=== PATIENT | female | born 1990 | race American Indian/Alaskan Native ===

== ENCOUNTER 2018-12-09 13:23 | Emergency (ER) | payer SELFPAY ==
[2018-12-09 13:41] VITALS: BP 145/93
[2018-12-09] MEDS ORDERED: FLEXERIL PO ONE (14:25)
[2018-12-09] MEDS ORDERED: IBUPROFEN PO ONE (14:25)
--- NOTE | 2018-12-09 14:25 | Emergency Department Report ---
ED Back Pain/Injury HPI - General Chief Complaint: Back Pain/Injury Stated Complaint: LOWER BACK PAIN Time Seen by Provider: 12/09/18 14:08 Source: patient Limitations: No Limitations - History of Present Illness Initial Comments: Ms. Hernández is a 28 yo female with hx of HTN who presents mild lower central back pain for the last several days. Mild in severity. 4 out of 10 in severity. 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 She was afraid to take any medication at home. She does not want any interaction with her home medication hydrochlorothiazide. MD Complaint: back pain -: Gradual Similar Symptoms Previously: No Place: home, work Radiation: none Severity: mild Severity scale (0 -10): 4 Quality: aching Consistency: constant Improves With: none Worsens With: movement Context: while lifting, turning/twisting, bending - Related Data Previous Rx's Medication Instructions Recorded Last Taken Type Metoclopramide [Reglan] 10 mg PO ACHS #28 tablet 06/26/18 Unknown Rx Prednisone [predniSONE 10 mg 10 mg PO .TAPER #1 tab.ds.pk 06/26/18 Unknown Rx (6-Day Pack, 21 Tabs)] Triamcinolone Aceton 0.1% (Nf) 1 applic TP BID #21 tube 06/26/18 Unknown Rx [Kenalog (NF)] diphenhydrAMINE [Benadryl CAP] 25 mg PO Q6HR PRN #30 capsule 06/26/18 Unknown Rx Cyclobenzaprine [Flexeril] 10 mg PO TID PRN #20 tablet 12/09/18 Unknown Rx Ibuprofen [Motrin 800 MG tab] 800 mg PO TID 5 Days #15 tablet 12/09/18 Unknown Rx Allergies Allergy/AdvReac Type Severity Reaction Status Date / Time minocycline Allergy Swelling Verified 12/09/18 13:37 ED Review of Systems ROS: Stated complaint: LOWER BACK PAIN Other details as noted in HPI Constitutional: denies: fever, malaise Musculoskeletal: back pain Skin: denies: rash, lesions Neurological: denies: numbness, paresthesias ED Past Medical Hx - Past Medical History Previous Medical History?: Yes Hx Hypertension: Yes Hx Asthma: Yes - Surgical History Past Surgical History?: No Additional Surgical History: wisdom - Social History Smoking Status: Never Smoker Substance Use Type: None - Medications Home Medications: Home Medications Medication Instructions Recorded Confirmed Last Taken Type Metoclopramide [Reglan] 10 mg PO ACHS #28 tablet 06/26/18 Unknown Rx Prednisone [predniSONE 10 mg 10 mg PO .TAPER #1 tab.ds.pk 06/26/18 Unknown Rx (6-Day Pack, 21 Tabs)] Triamcinolone Aceton 0.1% (Nf) 1 applic TP BID #21 tube 06/26/18 Unknown Rx [Kenalog (NF)] diphenhydrAMINE [Benadryl CAP] 25 mg PO Q6HR PRN #30 capsule 06/26/18 Unknown Rx Cyclobenzaprine [Flexeril] 10 mg PO TID PRN #20 tablet 12/09/18 Unknown Rx Ibuprofen [Motrin 800 MG tab] 800 mg PO TID 5 Days #15 tablet 12/09/18 Unknown Rx ED Physical Exam - General Limitations: No Limitations General appearance: alert, in no apparent distress - Head Head exam: Present: atraumatic, normocephalic - Eye Eye exam: Present: normal appearance - ENT ENT exam: Present: mucous membranes moist - Neck Neck exam: Present: normal inspection - Respiratory Respiratory exam: Absent: respiratory distress - GI/Abdominal GI/Abdominal exam: Present: soft - Extremities Exam Extremities exam: Present: normal inspection - Back Exam Back exam: Present: normal inspection - Neurological Exam Neurological exam: Present: alert, oriented X3, normal gait - Psychiatric Psychiatric exam: Present: normal affect, normal mood - Skin Skin exam: Present: warm, dry, intact, normal color. Absent: rash ED Course Vital Signs 12/09/18 13:37 Temperature 98.3 F Pulse Rate 109 H Respiratory 16 Rate Blood Pressure 145/93 O2 Sat by Pulse 99 Oximetry ED Medical Decision Making - Medical Decision Making Mild lumbar strain: Prescribed ibuprofen and Flexeril Recommended chiropractor or massage therapy Critical care attestation.: If time is entered above; I have spent that time in minutes in the direct care of this critically ill patient, excluding procedure time. ED Disposition Clinical Impression: Lumbar strain, Acute back pain Disposition: TO HOME OR SELFCARE Is pt being admited?: No Does the pt Need Aspirin: No Condition: Stable Instructions: Low Back Strain (ED), Acute Low Back Pain (ED) Prescriptions: Cyclobenzaprine [Flexeril] 10 mg PO TID PRN #20 tablet PRN Reason: Muscle Spasm Ibuprofen [Motrin 800 MG tab] 800 mg PO TID 5 Days #15 tablet
== END 2018-12-09 14:48 | disposition home or self-care (01) ==
LOC: ED 13:23
DX: S39.012A Strain of muscle, fascia and tendon of lower back, initial encounter (principal); I10 Essential (primary) hypertension; J45.909 Unspecified asthma, uncomplicated; Z88.1 Allergy status to other antibiotic agents; X50.9XXA Other and unspecified overexertion or strenuous movements or postures, initial encounter; Y93.89 Activity, other specified; Y92.89 Other specified places as the place of occurrence of the external cause; Y99.8 Other external cause status

== ENCOUNTER 2018-12-10 16:54 | Emergency (ER) | payer SELFPAY ==
--- NOTE | 2018-12-10 17:35 | Emergency Department Report ---
Chief Complaint: Back Pain/Injury Stated Complaint: TAILBONE/LOWERBACK PAIN Time Seen by Provider: 12/10/18 17:32 - HPI History of Present Illness: This is a 28 y.o. F. that presents to the ER with tailbone pain x 4 days. Denies injury. LMP 12/01/2018 - Exam Vital Signs: Vital Signs 12/10/18 17:31 Temperature 98.1 F Pulse Rate 92 H Respiratory 16 Rate Blood Pressure 131/83 O2 Sat by Pulse 100 Oximetry MSE screening note: Focused history and physical exam performed. Due to findings the following was ordered: This initial assessment/diagnostic orders/clinical plan/treatment(s) is/are subject to change based on patient's health status, clinical progression and re- assessment by fellow clinical providers in the ED. Further treatment and workup at subsequent clinical providers discretion. Patient/guardians urged not to elope from the ED as their condition may be serious if not clinically assessed and managed. Initial orders include: L-spine x-ray ED Disposition for MSE Condition: Stable
--- NOTE | 2018-12-10 18:51 | XRay Report ---
EXAM: XR SPINE LUMBOSACRAL 2-3V HISTORY: low back pain TECHNIQUE: 2 views COMPARISON: None available. FINDINGS: No vertebral fracture, bony erosion, or sclerosis is identified. There is no gross malalignment, spon dylolisthesis, or retrolisthesis seen. The intravertebral disc spaces are preserved. No evidence for significant degenerative disease is se en. The pedicles are intact throughout. There is no paraspinal soft tissue mass seen. IMPRESSION: 1. Unremarkable lumbar spine x-ray series. This document is electronically signed by Eric Gandhi MD., December 10 2018 06:49:12 PM ET
[2018-12-10 20:38] VITALS: BP 130/86
[2018-12-10] MEDS ORDERED: TORADOL IM ONE (20:55)
--- NOTE | 2018-12-10 20:55 | Emergency Department Report ---
ED Back Pain/Injury HPI - General Chief Complaint: Back Pain/Injury Stated Complaint: TAILBONE/LOWERBACK PAIN Time Seen by Provider: 12/10/18 17:32 Source: patient Limitations: No Limitations - History of Present Illness Initial Comments: CC: "I need a few days off work." HPI: Ms. Hernández is a 28 yo female who has lower lumbar back pain for the past several days. I evaluated her on yesterday. She had not attempted in pain medications. She desires time off work to recover. Mild back pain. No numbness. No fall. No fever. MD Complaint: back pain -: Gradual, days(s) (4) Similar Symptoms Previously: Yes Place: work Radiation: none Severity: mild Severity scale (0 -10): 4 Quality: dull Consistency: constant Worsens With: movement Context: while lifting - Related Data Previous Rx's Medication Instructions Recorded Last Taken Type Metoclopramide [Reglan] 10 mg PO ACHS #28 tablet 06/26/18 Unknown Rx Prednisone [predniSONE 10 mg 10 mg PO .TAPER #1 tab.ds.pk 06/26/18 Unknown Rx (6-Day Pack, 21 Tabs)] Triamcinolone Aceton 0.1% (Nf) 1 applic TP BID #21 tube 06/26/18 Unknown Rx [Kenalog (NF)] diphenhydrAMINE [Benadryl CAP] 25 mg PO Q6HR PRN #30 capsule 06/26/18 Unknown Rx Cyclobenzaprine [Flexeril] 10 mg PO TID PRN #20 tablet 12/09/18 Unknown Rx Ibuprofen [Motrin 800 MG tab] 800 mg PO TID 5 Days #15 tablet 12/09/18 Unknown Rx Allergies Allergy/AdvReac Type Severity Reaction Status Date / Time minocycline Allergy Swelling Verified 12/09/18 13:37 ED Review of Systems ROS: Stated complaint: TAILBONE/LOWERBACK PAIN Other details as noted in HPI Comment: All other systems reviewed and negative Constitutional: denies: fever, malaise Respiratory: denies: cough Cardiovascular: denies: chest pain ED Past Medical Hx - Past Medical History Previous Medical History?: Yes Hx Hypertension: Yes Hx Asthma: Yes - Surgical History Additional Surgical History: wisdom - Social History Smoking Status: Never Smoker Substance Use Type: None - Medications Home Medications: Home Medications Medication Instructions Recorded Confirmed Last Taken Type Metoclopramide [Reglan] 10 mg PO ACHS #28 tablet 06/26/18 Unknown Rx Prednisone [predniSONE 10 mg 10 mg PO .TAPER #1 tab.ds.pk 06/26/18 Unknown Rx (6-Day Pack, 21 Tabs)] Triamcinolone Aceton 0.1% (Nf) 1 applic TP BID #21 tube 06/26/18 Unknown Rx [Kenalog (NF)] diphenhydrAMINE [Benadryl CAP] 25 mg PO Q6HR PRN #30 capsule 06/26/18 Unknown Rx Cyclobenzaprine [Flexeril] 10 mg PO TID PRN #20 tablet 12/09/18 Unknown Rx Ibuprofen [Motrin 800 MG tab] 800 mg PO TID 5 Days #15 tablet 12/09/18 Unknown Rx ED Physical Exam - General Limitations: No Limitations General appearance: alert, in no apparent distress - Head Head exam: Present: atraumatic, normocephalic - Eye Eye exam: Present: normal appearance - ENT ENT exam: Present: mucous membranes moist - Neck Neck exam: Present: normal inspection - Respiratory Respiratory exam: Present: normal lung sounds bilaterally. Absent: respiratory distress, wheezes, rales, rhonchi - Cardiovascular Cardiovascular Exam: Present: regular rate, normal rhythm, normal heart sounds. Absent: systolic murmur, diastolic murmur, rubs, gallop - GI/Abdominal GI/Abdominal exam: Present: soft, normal bowel sounds. Absent: distended, tenderness - Extremities Exam Extremities exam: Present: normal inspection - Back Exam Back exam: Present: full ROM, muscle spasm. Absent: tenderness, CVA tenderness (R), CVA tenderness (L) - Neurological Exam Neurological exam: Present: alert, oriented X3, normal gait - Psychiatric Psychiatric exam: Present: normal affect, normal mood - Skin Skin exam: Present: warm, dry, intact, normal color. Absent: rash ED Course Vital Signs 12/10/18 12/10/18 17:31 20:37 Temperature 98.1 F Pulse Rate 92 H 92 H Respiratory 16 16 Rate Blood Pressure 131/83 Blood Pressure 130/86 [Left] O2 Sat by Pulse 100 100 Oximetry ED Medical Decision Making - Medical Decision Making Ms. Hernández presents with mild lower lumbar strain. She was given work note. Strongly encouraged the use of medications provided on yesterday. Critical care attestation.: If time is entered above; I have spent that time in minutes in the direct care of this critically ill patient, excluding procedure time. ED Disposition Clinical Impression: Lumbar strain, Acute back pain Disposition: TO HOME OR SELFCARE Is pt being admited?: No Does the pt Need Aspirin: No Condition: Stable Instructions: Acute Low Back Pain (ED) Referrals: JENNIFER BISHOP MD [Primary Care Provider] - 3-5 Days Forms: Work/School Release Form(ED)
== END 2018-12-10 21:04 | disposition home or self-care (01) ==
LOC: ED 16:54
DX: S39.012A Strain of muscle, fascia and tendon of lower back, initial encounter (principal); I10 Essential (primary) hypertension; J45.909 Unspecified asthma, uncomplicated; X58.XXXA Exposure to other specified factors, initial encounter; Y93.89 Activity, other specified; Y92.89 Other specified places as the place of occurrence of the external cause; Y99.8 Other external cause status
CPT/HCPCS: 72100; 96372; 99283; J1885

== ENCOUNTER 2020-01-24 12:53 | Emergency (ER) | payer SELFPAY ==
[2020-01-24 13:34] VITALS: BP 148/86
--- NOTE | 2020-01-24 13:41 | Emergency Department Report ---
Chief Complaint: Urogenital-Female Stated Complaint: BREAST PAIN Time Seen by Provider: 01/24/20 13:30 - HPI History of Present Illness: 29 yo AA F pt with hx of HTN and Asthma presents with complaints of right breast pain x 3 weeks. She denies any skin changes, masses, hx of breast cancer, or nipple discharge. Pt states she was seen at the [place] [facility] 3 weeks ago at the start of her pain and was given a breast US. She states nothing was found on the US and she has now been scheduled for a mammogram. Pt states she is here today for worsening of her pain today MSE screening note: Focused history and physical exam performed. Due to findings the following was ordered: ED Medical Decision Making - Medical Decision Making Patient here with complaints of right breast pain for the past 3 weeks. She states she is currently being evaluated at the [facility] and is scheduled for mammogram. No abnormalities of the right breast are noted on exam. Patient's symptoms seem to be consistent with fibrocystic breasts. Recommend patient follows up with the [facility] for her mammogram as scheduled. She is well- appearing and her vitals are normal. Strict return precautions were discussed in detail with patient who verbalized understanding. ED Disposition for MSE Clinical Impression: Breast pain, right Disposition: Z-07 MED SCREENING EXAM-LEFT Is pt being admited?: No Condition: Stable Instructions: Mammogram (ED) Additional Instructions: Please try taking ibuprofen 400 mg to 800 mg three times daily as needed for pain. Lease follow-up with the [facility] as scheduled for your mammogram Forms: Work/School Release Form(ED) ED Physical Exam - General Limitations: No Limitations General appearance: alert, in no apparent distress - Head Head exam: Present: atraumatic - Eye Eye exam: Present: normal appearance. Absent: scleral icterus - Neck Neck exam: Present: normal inspection - Respiratory Respiratory exam: Present: normal lung sounds bilaterally. Absent: respiratory distress - Cardiovascular Cardiovascular Exam: Present: regular rate, normal rhythm, other (Right breast is normal in appearance. No erythema, swelling, or lesions are noted. Breast is tender to palpation, however no masses are felt. No nipple discharge is noted/expressed). Absent: systolic murmur, diastolic murmur, rubs, gallop - Extremities Exam Extremities exam: Present: normal inspection - Back Exam Back exam: Present: normal inspection - Neurological Exam Neurological exam: Present: alert, oriented X3, normal gait - Psychiatric Psychiatric exam: Present: normal affect, normal mood - Skin Skin exam: Present: warm, dry, intact, normal color. Absent: rash ED Review of Systems ROS: Stated complaint: BREAST PAIN Other details as noted in HPI Constitutional: denies: chills, fever, malaise Respiratory: denies: cough, shortness of breath Cardiovascular: denies: palpitations, edema, syncope Gastrointestinal: denies: abdominal pain, nausea, vomiting Skin: denies: rash, lesions, change in color, pruritus Neurological: denies: numbness, paresthesias Hematological/Lymphatic: denies: easy bleeding, swollen glands
== END 2020-01-24 15:23 | disposition left against medical advice (07) ==
LOC: ED 12:53
DX: N64.4 Mastodynia (principal); Z53.21 Procedure and treatment not carried out due to patient leaving prior to being seen by health care provider

== ENCOUNTER 2021-01-08 23:19 | Emergency (ER) | payer SELFPAY ==
[2021-01-08 23:36] VITALS: BP 157/98
--- NOTE | 2021-01-09 02:19 | Emergency Department Report ---
ED ENT HPI - General Chief complaint: Sore Throat Stated complaint: SORE THROAT/HEADACHE/COLD SX Time Seen by Provider: 01/09/21 01:47 Source: patient Mode of arrival: Ambulatory Limitations: No Limitations - History of Present Illness MD complaint: sore throat -: Gradual Location: throat Severity: mild, moderate Quality: aching, dull Consistency: constant Improves with: none Worsens with: swallowing Associated Symptoms: toothache, pain with swallowing, sore throat. denies: hearing loss, discharge from ear, rhinorrhea - Related Data Previous Rx's Medication Instructions Recorded Last Taken Type Metoclopramide [Reglan] 10 mg PO ACHS #28 tablet 06/26/18 Unknown Rx Prednisone [predniSONE 10 mg 10 mg PO .TAPER #1 tab.ds.pk 06/26/18 Unknown Rx (6-Day Pack, 21 Tabs)] Triamcinolone Aceton 0.1% (Nf) 1 applic TP BID #21 tube 06/26/18 Unknown Rx [Kenalog (NF)] diphenhydrAMINE [Benadryl CAP] 25 mg PO Q6HR PRN #30 capsule 06/26/18 Unknown Rx Cyclobenzaprine [Flexeril] 10 mg PO TID PRN #20 tablet 12/09/18 Unknown Rx Ibuprofen [Motrin 800 MG tab] 800 mg PO TID 5 Days #15 tablet 12/09/18 Unknown Rx Amoxicillin/Potassium Clav 1 each PO BID #20 tablet 01/09/21 Unknown Rx [Augmentin 875-125 Tablet] Chlorhexidine Mouthwash [Peridex] 15 ml MM BID #1 bottle 01/09/21 Unknown Rx Lidocaine Viscous 2% 5 ml MM Q3H PRN #120 udc 01/09/21 Unknown Rx Allergies Allergy/AdvReac Type Severity Reaction Status Date / Time minocycline Allergy Swelling Verified 02/17/20 13:32 ED Dental HPI - General Chief complaint: Sore Throat Stated complaint: SORE THROAT/HEADACHE/COLD SX Time Seen by Provider: 01/09/21 01:47 Source: patient Mode of arrival: Ambulatory Limitations: No Limitations - Related Data Previous Rx's Medication Instructions Recorded Last Taken Type Metoclopramide [Reglan] 10 mg PO ACHS #28 tablet 06/26/18 Unknown Rx Prednisone [predniSONE 10 mg 10 mg PO .TAPER #1 tab.ds.pk 06/26/18 Unknown Rx (6-Day Pack, 21 Tabs)] Triamcinolone Aceton 0.1% (Nf) 1 applic TP BID #21 tube 06/26/18 Unknown Rx [Kenalog (NF)] diphenhydrAMINE [Benadryl CAP] 25 mg PO Q6HR PRN #30 capsule 06/26/18 Unknown Rx Cyclobenzaprine [Flexeril] 10 mg PO TID PRN #20 tablet 12/09/18 Unknown Rx Ibuprofen [Motrin 800 MG tab] 800 mg PO TID 5 Days #15 tablet 12/09/18 Unknown Rx Amoxicillin/Potassium Clav 1 each PO BID #20 tablet 01/09/21 Unknown Rx [Augmentin 875-125 Tablet] Chlorhexidine Mouthwash [Peridex] 15 ml MM BID #1 bottle 01/09/21 Unknown Rx Lidocaine Viscous 2% 5 ml MM Q3H PRN #120 udc 01/09/21 Unknown Rx Allergies Allergy/AdvReac Type Severity Reaction Status Date / Time minocycline Allergy Swelling Verified 02/17/20 13:32 ED Review of Systems ROS: Stated complaint: SORE THROAT/HEADACHE/COLD SX Other details as noted in HPI Comment: All other systems reviewed and negative ED Past Medical Hx - Past Medical History Previous Medical History?: Yes Hx Hypertension: Yes Hx Asthma: Yes - Surgical History Past Surgical History?: Yes Additional Surgical History: wisdom - Social History Smoking Status: Never Smoker Substance Use Type: None - Medications Home Medications: Home Medications Medication Instructions Recorded Confirmed Last Taken Type Metoclopramide [Reglan] 10 mg PO ACHS #28 tablet 06/26/18 Unknown Rx Prednisone [predniSONE 10 mg 10 mg PO .TAPER #1 tab.ds.pk 06/26/18 Unknown Rx (6-Day Pack, 21 Tabs)] Triamcinolone Aceton 0.1% (Nf) 1 applic TP BID #21 tube 06/26/18 Unknown Rx [Kenalog (NF)] diphenhydrAMINE [Benadryl CAP] 25 mg PO Q6HR PRN #30 capsule 06/26/18 Unknown Rx Cyclobenzaprine [Flexeril] 10 mg PO TID PRN #20 tablet 12/09/18 Unknown Rx Ibuprofen [Motrin 800 MG tab] 800 mg PO TID 5 Days #15 tablet 12/09/18 Unknown Rx Amoxicillin/Potassium Clav 1 each PO BID #20 tablet 01/09/21 Unknown Rx [Augmentin 875-125 Tablet] Chlorhexidine Mouthwash [Peridex] 15 ml MM BID #1 bottle 01/09/21 Unknown Rx Lidocaine Viscous 2% 5 ml MM Q3H PRN #120 udc 01/09/21 Unknown Rx ED Physical Exam - General Limitations: No Limitations General appearance: alert, in no apparent distress - Head Head exam: Present: atraumatic, normocephalic - Eye Eye exam: Present: normal appearance, PERRL, EOMI Pupils: Present: normal accommodation - ENT ENT exam: Present: mucous membranes moist, other (Pain is mild erythema no exudate. No evidence of any peritonsillar abscess. No signs of any Dylon) - Neck Neck exam: Present: normal inspection, full ROM. Absent: tenderness, meningismus, lymphadenopathy - Respiratory Respiratory exam: Present: normal lung sounds bilaterally. Absent: respiratory distress - Cardiovascular Cardiovascular Exam: Present: regular rate, normal rhythm. Absent: systolic murmur, diastolic murmur, rubs, gallop - GI/Abdominal GI/Abdominal exam: Present: soft, normal bowel sounds - Extremities Exam Extremities exam: Present: normal inspection - Back Exam Back exam: Present: normal inspection - Neurological Exam Neurological exam: Present: alert, oriented X3 - Psychiatric Psychiatric exam: Present: normal affect, normal mood - Skin Skin exam: Present: warm, dry, intact, normal color. Absent: rash ED Course Vital Signs 01/08/21 23:34 Temperature 99.0 F Pulse Rate 109 H Respiratory 18 Rate Blood Pressure 157/98 O2 Sat by Pulse 100 Oximetry ED Medical Decision Making - Medical Decision Making 30-year-old with no history of any compromised nontoxic appearance patient is euvolemic with no trismus no airway compromise unable to tolerate p.o. given history and examination low suspicion for this presentation being caused by peritonsillar abscess, Jaison, bacterial tracheitis, acute HIV, epiglottitis, retropharyngeal abscess. Critical care attestation.: If time is entered above; I have spent that time in minutes in the direct care of this critically ill patient, excluding procedure time. ED Disposition Clinical Impression: Pharyngitis Disposition: DC- TO HOME OR SELFCARE Is pt being admited?: No Does the pt Need Aspirin: No Condition: Stable Instructions: Strep Throat, Adult, [id number], Sore Throat, [id number], Pharyngitis, Pharyngitis, [id number] Prescriptions: Amoxicillin/Potassium Clav [Augmentin 875-125 Tablet] 1 each PO BID #20 tablet Lidocaine Viscous 2% 5 ml MM Q3H PRN #120 udc PRN Reason: Pain, Moderate (4-6) Chlorhexidine Mouthwash [Peridex] 15 ml MM BID #1 bottle Referrals: CRISTOPHER SADLER MD [Staff Physician] - 3-5 Days [facility] [Provider Group] - 3-5 Days
== END 2021-01-09 02:40 | disposition home or self-care (01) ==
LOC: ED 23:19
DX: J02.9 Acute pharyngitis, unspecified (principal); I10 Essential (primary) hypertension; J45.909 Unspecified asthma, uncomplicated; Z98.890 Other specified postprocedural states; Z88.1 Allergy status to other antibiotic agents; Z79.899 Other long term (current) drug therapy
CPT/HCPCS: 99281